=== PATIENT | female | born 1945 | race Caucasian/White ===

== ENCOUNTER 2018-02-28 15:42 | Emergency (ER) | payer OTHER ==
[2018-02-28] MEDS: DIPHTH,PERTUSS(ACELL),TET TOX 0.5 ML DISP.SYRIN. VAX IM (17:41)
[2018-02-28] MEDS: LIDOCAINE WITH 8.4% SOD BICARB 3 ML DISP.SYRIN. INJ (17:43)
== END 2018-02-28 17:47 | disposition home or self-care (01) ==
LOC: ER 17:47
DX: S61.211A Laceration without foreign body of left index finger without damage to nail, initial encounter (principal); E11.9 Type 2 diabetes mellitus without complications; I10 Essential (primary) hypertension; W26.0XXA Contact with knife, initial encounter; Y93.89 Activity, other specified; Y92.89 Other specified places as the place of occurrence of the external cause; Y99.8 Other external cause status
CPT/HCPCS: 12001; 90471; 90715; 99283

== ENCOUNTER → 2019-12-21 | Outpatient (CLI) | payer MEDICARE ==
[2018-02-28 16:40] VITALS: BP 167/85
--- NOTE | 2019-12-21 16:09 | KCIC ---
DEXA scan 12/21/2019 Clinical History: Postmenopausal female. Risk factors for osteoporosis. Technique: DEXA of the lumbar spine and left hip was performed. FINDINGS: No previous studies are available for comparison. The bone mineral density of the lumbar spine is 1.039 g/cm2 which corresponds with a T-score of -0.1 . This is within normal limits. The mean bone mineral density of the left hip is 0.826 g/sq cm. This corresponds to a T score of -1.0 . This is consistent with mild osteopenia . By [employer] on Osteoporosis criteria, a T score of 0 to-1 SD is considered to be within normal limits. A T score of -1 to -2.5 SD is considered osteopenia. A T score less than -2.5 SD is considered osteoporosis Impression: 1. The mean bone mineral density of the lumbar spine is within normal limits. 2. Mild osteopenia of the left hip. Electronically signed by: Abiel Hill MD (12/21/2019 4:06 PM) [facility] [place]
== END | disposition home or self-care (01) ==
LOC: KCIC DEXA 12:15
PROVIDERS: ATTEND Internal Medicine
DX: Z13.820 Encounter for screening for osteoporosis (principal); M85.88 Other specified disorders of bone density and structure, other site; Z78.0 Asymptomatic menopausal state
CPT/HCPCS: 77080